=== PATIENT | female | born 1940 | race Two or more races ===

== ENCOUNTER 2020-04-10 10:31 | Inpatient (IN) | payer OTHER ==
[~2020-04-10] VITALS: Ht 154.9 cm; Wt 72.1 kg
[~2020-04-10 10:31] MED LIST: ANTIVERT25 M1 PO; ASA81 MG; CLARITIN10 MG PO; COZAAR25 MG PO; CYMBALTA60 MG; HYZAAR 50/12.51 TAB PO; NABUMETONE750 MG PO; NORVASC5 MG; ORPH100T; TRAMADOL HCL-AP1 TAB PO
== END 2020-04-18 14:36 | disposition home or self-care (01) | DRG 393 ==
LOC: ER 10:31 → SEC-K 20:20 → MEDI 20:20 → MEDJ 04-11 04:00 → MEDI 04-18 14:36
PROVIDERS: ADMIT Internal Medicine; ATTEND Internal Medicine
PROC: BW21ZZZ Computerized Tomography (CT Scan) of Abdomen and Pelvis (ICD-10-PCS; 2020-04-10)
PROC: 30233N1 Transfusion of Nonautologous Red Blood Cells into Peripheral Vein, Percutaneous Approach (ICD-10-PCS; 2020-04-11)
PROC: B246ZZZ Ultrasonography of Right and Left Heart (ICD-10-PCS; 2020-04-15)
PROC: 0DBK8ZX Excision of Ascending Colon, Via Natural or Artificial Opening Endoscopic, Diagnostic (ICD-10-PCS; principal; 2020-04-17)
DX: K63.3 Ulcer of intestine (principal); K57.31 Diverticulosis of large intestine without perforation or abscess with bleeding; K62.5 Hemorrhage of anus and rectum; K64.4 Residual hemorrhoidal skin tags; K64.8 Other hemorrhoids; I25.10 Atherosclerotic heart disease of native coronary artery without angina pectoris; D12.2 Benign neoplasm of ascending colon; Z20.828 Contact with and (suspected) exposure to other viral communicable diseases; Z98.61 Coronary angioplasty status; Z79.01 Long term (current) use of anticoagulants

== ENCOUNTER 2020-07-11 18:43 | Emergency (ER) | payer OTHER ==
[~2020-07-11] VITALS: Ht 152.4 cm; Wt 72.6 kg
[2020-07-11] MEDS ORDERED: ISORDIL10 MG (19:07)
[2020-07-11] MEDS ORDERED: TOPROL XL25 M1 (19:07)
[2020-07-11] MEDS ORDERED: CYMBALTA60 MG (19:07)
[2020-07-11] MEDS ORDERED: CANNABIS PO (19:08)
== END 2020-07-12 12:14 | disposition home or self-care (01) ==
LOC: ER 18:43
DX: R40.4 Transient alteration of awareness (principal); R41.0 Disorientation, unspecified; T40.695A Adverse effect of other narcotics, initial encounter; T50.995A Adverse effect of other drugs, medicaments and biological substances, initial encounter; Z03.818 Encounter for observation for suspected exposure to other biological agents ruled out; Y92.89 Other specified places as the place of occurrence of the external cause

== ENCOUNTER 2020-07-23 09:40 | Emergency (ER) | payer OTHER ==
[~2020-07-23] VITALS: Ht 157.5 cm; Wt 68.0 kg
[~2020-07-23 09:40] MED LIST changes: +CANNABIS PO; +ISORDIL10 MG; +TOPROL XL25 M1
== END 2020-07-23 16:21 | disposition home or self-care (01) ==
LOC: ER 09:40
DX: R53.81 Other malaise (principal); R41.0 Disorientation, unspecified; T50.995A Adverse effect of other drugs, medicaments and biological substances, initial encounter; T40.7X5A Adverse effect of cannabis (derivatives), initial encounter; Y92.89 Other specified places as the place of occurrence of the external cause

== ENCOUNTER 2020-09-29 13:32 | Emergency (ER) | payer OTHER ==
[~2020-09-29] VITALS: Ht 152.4 cm; Wt 70.3 kg
[2020-09-29] MEDS ORDERED: ROSUVASTATIN CA40 MG PO (13:40)
== END 2020-09-29 21:28 | disposition home or self-care (01) ==
LOC: ER 13:32
DX: R41.82 Altered mental status, unspecified (principal); R11.11 Vomiting without nausea; R07.89 Other chest pain; T50.995A Adverse effect of other drugs, medicaments and biological substances, initial encounter; Y92.89 Other specified places as the place of occurrence of the external cause

== ENCOUNTER 2020-12-05 20:37 | Inpatient (IN) | payer OTHER ==
[~2020-12-05] VITALS: Ht 152.4 cm; Wt 63.5 kg
[~2020-12-05 20:37] MED LIST changes: +ROSUVASTATIN CA40 MG PO
--- NOTE | 2020-12-05 20:49 | NUR ---
PTE QUE LLEGA EN SILLA DE [place] EN COMPANIA DE FAMILIAR CON LAB[facility]ATORIO [facility] EN 7.8.
--- NOTE | 2020-12-05 21:03 | NUR ---
MR. MACEDO EDUCA A PTE SOBRE [place] MEDICO ESTA REFIERE ENTENDER. SE DESIRAE MUESTRAS DE LABORATORIO UTILIZANDO MEDIDAS ASEPTICAS. SE COLOCA H/L EL CUAL SE ENCUENTRA PATENTE Y SHELLI DE EDEMA. SE COLOCA IV FLUIDS A PTE Y SE CONTINUA MONITORIANDO POR CAMBIOS.
== END 2020-12-10 22:52 | disposition home or self-care (01) | DRG 379 ==
LOC: ER 20:37 → MEDI 22:04
PROVIDERS: ADMIT Internal Medicine; ATTEND Internal Medicine
PROC: 30233N1 Transfusion of Nonautologous Red Blood Cells into Peripheral Vein, Percutaneous Approach (ICD-10-PCS; principal; 2020-12-06)
PROC: 0DJ08ZZ Inspection of Upper Intestinal Tract, Via Natural or Artificial Opening Endoscopic (ICD-10-PCS; 2020-12-09)
DX: K57.33 Diverticulitis of large intestine without perforation or abscess with bleeding (principal); D64.9 Anemia, unspecified; K25.3 Acute gastric ulcer without hemorrhage or perforation; D50.0 Iron deficiency anemia secondary to blood loss (chronic); T39.395A Adverse effect of other nonsteroidal anti-inflammatory drugs [NSAID], initial encounter; I10 Essential (primary) hypertension; Z20.822 Contact with and (suspected) exposure to COVID-19

== ENCOUNTER 2021-01-06 15:49 | Emergency (ER) | payer OTHER ==
[~2021-01-06] VITALS: Ht 154.9 cm; Wt 59.9 kg
[2021-01-06] MEDS ORDERED: PYRIDIUM200 MG PO (23:08)
[2021-01-06] MEDS ORDERED: BACTRIM DS TAB1 EACH PO (23:08)
== END 2021-01-06 23:10 | disposition home or self-care (01) ==
LOC: ER 15:49
DX: R56.9 Unspecified convulsions (principal); N39.0 Urinary tract infection, site not specified; R25.8 Other abnormal involuntary movements

== ENCOUNTER 2021-01-16 18:03 | Emergency (ER) | payer OTHER ==
[~2021-01-16] VITALS: Ht 160 cm; Wt 68.0 kg
[~2021-01-16 18:03] MED LIST changes: +BACTRIM DS TAB1 EACH PO; +PYRIDIUM200 MG PO
== END 2021-01-16 21:17 | disposition home or self-care (01) ==
LOC: ER 18:03
DX: I95.89 Other hypotension (principal); R53.1 Weakness

== ENCOUNTER 2021-01-19 11:59 | Emergency (ER) | payer OTHER ==
[~2021-01-19] VITALS: Ht 167.6 cm; Wt 65.3 kg
== END 2021-01-19 17:05 | disposition home or self-care (01) ==
LOC: ER 11:59
DX: S60.222A Contusion of left hand, initial encounter (principal); W18.39XA Other fall on same level, initial encounter; Y93.89 Activity, other specified; Y92.098 Other place in other non-institutional residence as the place of occurrence of the external cause; Y99.8 Other external cause status; R47.1 Dysarthria and anarthria

== ENCOUNTER 2022-11-23 10:26 | Outpatient (CLI) | payer OTHER | END 2022-11-23 10:38 | disposition home or self-care (01) | LOC: SONOGRAMA 10:26 | DX: E04.1 Nontoxic single thyroid nodule (principal) ==